=== PATIENT | male | born 2000 | race Two or more races ===

== ENCOUNTER → 2024-10-09 | Outpatient (CLI) | payer MEDICAID ==
[~2024-10-09] VITALS: Ht 188 cm; Wt 166.9 kg
[2024-10-09] MEDS: REGADENOSON 0.4 MG/5 ML SYRG IV ONE ×2 (10:57→11:02)
--- NOTE | 2024-10-09 13:22 | DVHSR ---
APPROVED REPORT Exam: Nuclear Stress Test BMI: 0 Stress Test Details HR Max Heart Rate (APMHR): 198.259839 bpm Target HR (85% APMHR): 168.134856 bpm BP ECG Stress ECG Conclusion lvef 55% no major stress induced ischemia noted NM EXAM: Myocardial Perfusion REST/STRESS Imaging Protocol: Rest Tc-99m/Stress Tc-99m 1 day Resting Data Rest SPECT myocardial perfusion imaging was performed in supine position 60 minutes following the int ravenous injection of 12.4 mCi of Tc-99m Sestamibi. Time of rest injection: 0932 Date: 10/09/2024 Time of rest imagin Date: 10/09/2024 Administration Route: IV Administration Site: Left AC Pharmacologic Stress Pharmacologic stress test was performed by injecting Regadenoson 0.4 mg IV push followed by the intra venous injection of 36 mCi of Tc-99m Sestamibi. Time of stress injection: 1057 Date: 10/09/2024 Time of stress imagin Date: 10/09/2024 Administration Route: IV Administration Site: Left AC Gated Stress SPECT was performed 60 minutes after stress injection. The images were gated to evaluate regional wall motion and calculate left ventricular ejection fracti on. Stress only was performed in the Supine position. Nuclear Conclusion Nuclear Findings: negative for ischemia lvef 55% no major stress induced ischemia noted
== END | disposition home or self-care (01) ==
LOC: XYW 09:04
PROVIDERS: ATTEND Specialist
DX: R00.2 Palpitations (principal); R07.9 Chest pain, unspecified; R06.00 Dyspnea, unspecified; E66.9 Obesity, unspecified; Z68.42 Body mass index [BMI] 45.0-49.9, adult
CPT/HCPCS: 78452; 93017; A9500; J2785